=== PATIENT | female | born 2000 | race Hispanic/Latino ===

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

== ENCOUNTER 2021-01-26 14:31 | Emergency (ER) | payer OTHER ==
[2021-01-26] MEDS ORDERED: Ondansetron PF 4 MG/2 ML Vial ONE (15:23)
[2021-01-26 15:41] LABS: Bilirubin Neg (Negative); Blood, Urine Negative (Negative); Clarity Cloudy (Clear); Glucose, Urine (Dipstick) Normal (Negative); Ketone, Urine Negative (Negative); Leukocyte Negative (Negative); Nitrite Negative (Negative); Protein, Urine (Dipstick) Negative (Neg-Trace)
[2021-01-26 15:42] LABS: Pregnancy Test - Urine (BHCG) POSITIVE (Negative); Pregu Control Background? CLEAR/WHITE (CLR/WHITE); Pregu Control Bar Appear? YES (CONTROL BAR)
== END 2021-01-26 16:45 | disposition home or self-care (01) ==
LOC: CSHERS 14:31
DX: O99.891 Other specified diseases and conditions complicating pregnancy (principal); R11.2 Nausea with vomiting, unspecified
CPT/HCPCS: 81003; 81025; 84702; 96374; J2405

== ENCOUNTER 2021-05-22 10:59 | Emergency (ER) | payer OTHER ==
[2021-05-22] MEDS ORDERED: Ondansetron PF 4 MG/2 ML Vial ONE (12:01)
[2021-05-22] MEDS ORDERED: Acetaminophen 325 MG TAB ONE (12:01)
== END 2021-05-22 13:45 | disposition home or self-care (01) ==
LOC: CSHERS 10:59
DX: J10.1 Influenza due to other identified influenza virus with other respiratory manifestations (principal); E86.0 Dehydration
CPT/HCPCS: 71045; 87804; 96374; J2405

== ENCOUNTER 2021-11-04 13:18 | Emergency (ER) | payer OTHER ==
[2021-11-04] MEDS ORDERED: Ondansetron PF 4 MG/2 ML Vial ONE (14:00)
[2021-11-04 14:14] LABS: #Basophils 0.1 10x3/uL (0.0-0.2); #Eosinphils 0.1 10x3/uL (0.0-0.5); #Monocytes 0.7 10x3/uL (0.0-1.1); #Neutrophils 5.5 10x3/uL (1.5-8.4); %Basophils 0.9 % (0.0-2.0); %Eosinophils 0.8 % (0.0-6.0); %Lymphocytes 16.1 % (18.0-47.0); %Monocytes 9.2 % (0.0-10.0); %Neutrophils 72.7 % (40.0-75.0); Hemoglobin 14.6 g/dL (12.0-15.5); Mean Corpuscular Hemoglobin 32.4 pg (27.0-33.0); Mean Corpuscular Volume 92.7 fl (81.6-98.3); Mean Platelet Volume 9.3 fl (7.4-10.4); Platelet Count 277 10x3/uL (150-450); RBC Distribution Width 12.2 % (11.5-14.5); White Blood Cell (WBC) Count 7.5 10x3/uL (3.5-10.5)
[2021-11-04 14:20] LABS: BHCG - Serum Negative (NEGATIVE); Pregs Control Background? CLEAR/WHITE (CLR/WHITE); Pregs Control Bar Appear? YES (CONTROL BAR)
[2021-11-04 14:28] LABS: ALT (SGPT) 15 U/L (8-55); AST (SGOT) 16 U/L (5-34); Albumin 4.4 g/dL (3.5-5.0); Alkaline Phosphatase 47 U/L (40-100); Anion Gap 14 mmol/L (10-20); BUN (Urea Nitrogen) 12 mg/dL (7.0-18.7); Bilirubin, Total 0.9 mg/dL (0.2-1.2); Calc. Creatinine Clearance 0 mL/min (70-130); Calcium 9.2 mg/dL (7.8-10.44); Carbon Dioxide 28 mmol/L (22-29); Chloride 103 mmol/L (98-107); Estimated GFR 128; Globulin 2.4 g/dL (2.4-3.5); Glucose 83 mg/dL (70-105); Lipase 7 U/L (8-78); Potassium 3.7 mmol/L (3.5-5.1); Protein, Total 6.8 g/dL (6.0-8.3); Sodium 141 mmol/L (136-145)
[2021-11-04 15:10] LABS: Bilirubin Neg (Negative); Blood, Urine Negative (Negative); Glucose, Urine (Dipstick) Normal (Negative); Ketone, Urine 50 mg/dL (Negative); Leukocyte 25 (Negative); Nitrite Negative (Negative); Protein, Urine (Dipstick) 15 mg/dl (Neg-Trace); Specific Gravity, Urine 1.015 3 (1.005-1.030)
[2021-11-04 15:19] LABS: Bacteria/HPF Rare-Few HPF (None Seen); RBC/HPF 0-3 HPF (0-3); Squamous Epithelial 0-3 HPF (0-3)
[2021-11-04] MEDS ORDERED: Ketorolac Tromethamine 30 MG/ML VIAL ONE (15:22)
== END 2021-11-04 15:33 | disposition home or self-care (01) ==
LOC: CSHERS 13:18
DX: R10.84 Generalized abdominal pain (principal); R11.2 Nausea with vomiting, unspecified; F12.90 Cannabis use, unspecified, uncomplicated
CPT/HCPCS: 80053; 81003; 81015; 83690; 84703; 85025; 96361; 96374; 96375; J1885; J2405

== ENCOUNTER 2021-12-02 14:33 | Emergency (ER) | payer OTHER ==
[2021-12-02 14:54] LABS: Bilirubin Neg (Negative); Blood, Urine 250 (Negative); Clarity Sl. Cloudy (Clear); Glucose, Urine (Dipstick) Normal (Negative); Ketone, Urine Negative (Negative); Leukocyte 25 (Negative); Nitrite Negative (Negative); Protein, Urine (Dipstick) Negative (Neg-Trace)
[2021-12-02 14:56] LABS: Pregnancy Test - Urine (BHCG) Negative (Negative); Pregu Control Background? CLEAR/WHITE (CLR/WHITE); Pregu Control Bar Appear? YES (CONTROL BAR)
[2021-12-02 15:18] LABS: Bacteria/HPF Rare-Few HPF (None Seen)
== END 2021-12-02 17:05 | disposition home or self-care (01) ==
LOC: CSHERS 14:33
DX: N93.9 Abnormal uterine and vaginal bleeding, unspecified (principal); R51.9 Headache, unspecified
CPT/HCPCS: 81003; 81015; 81025; 99284

== ENCOUNTER 2021-12-15 04:50 | Emergency (ER) | payer OTHER ==
[2021-12-15] MEDS ORDERED: Ibuprofen 200 MG TAB ONE (06:14)
== END 2021-12-15 06:52 | disposition short-term general hospital (02) ==
LOC: CSHERS 04:50
DX: T76.21XA Adult sexual abuse, suspected, initial encounter (principal)
CPT/HCPCS: 99285

== ENCOUNTER 2022-03-31 17:23 | Emergency (ER) | payer OTHER ==
[2022-03-31] MEDS ORDERED: Ketorolac Tromethamine 30 MG/ML VIAL ONE (18:15)
[2022-03-31] MEDS ORDERED: Lidocaine 1% (PF) 30 ML VIAL ONE (18:15)
== END 2022-03-31 19:31 | disposition home or self-care (01) ==
LOC: CSHERS 17:23
DX: N75.1 Abscess of Bartholin's gland (principal)
CPT/HCPCS: 56420; 96372; J1885; J2001

== ENCOUNTER 2022-05-18 14:19 | Emergency (ER) | payer OTHER ==
[2022-05-18 15:12] LABS: Bilirubin Neg (Negative); Blood, Urine Negative (Negative); Clarity Clear (Clear); Glucose, Urine (Dipstick) Normal (Negative); Ketone, Urine Negative (Negative); Leukocyte Negative (Negative); Nitrite Negative (Negative); Pregnancy Test - Urine (BHCG) POSITIVE (Negative); Protein, Urine (Dipstick) Negative (Neg-Trace); Specific Gravity 1.015 (1.002-1.036); Specific Gravity, Urine 1.015 (1.005-1.030); Urobilinogen Normal mg/dL (Less than 2)
[2022-05-18 15:13] LABS: Pregu Control Background? CLEAR/WHITE (CLR/WHITE); Pregu Control Bar Appear? YES (CONTROL BAR)
== END 2022-05-18 15:41 | disposition home or self-care (01) ==
LOC: CSHERS 14:19
DX: O21.9 Vomiting of pregnancy, unspecified (principal); Z3A.12 12 weeks gestation of pregnancy
CPT/HCPCS: 81003; 81025; 99284

== ENCOUNTER 2022-05-26 20:36 | Emergency (ER) | payer OTHER | END 2022-05-26 21:50 | disposition home or self-care (01) | LOC: CSHERS 20:36 | DX: O99.891 Other specified diseases and conditions complicating pregnancy (principal); R10.13 Epigastric pain; Z3A.08 8 weeks gestation of pregnancy | CPT/HCPCS: 99283 ==

== ENCOUNTER 2022-06-21 22:08 | Emergency (ER) | payer OTHER ==
[2022-06-22] MEDS ORDERED: diphenhydrAMINE 25 MG CAP ONE (01:30)
[2022-06-22] MEDS ORDERED: Metoclopramide HCl 10 MG TAB ONE (01:31)
[2022-06-22 01:34] LABS: #Basophils 0.1 10x3/uL (0.0-0.2); #Eosinphils 0.1 10x3/uL (0.0-0.5); #Monocytes 0.6 10x3/uL (0.0-1.1); #Neutrophils 9.5 10x3/uL (1.5-8.4); %Basophils 0.6 % (0.0-2.0); %Eosinophils 1.1 % (0.0-6.0); %Lymphocytes 9.3 % (18.0-47.0); %Monocytes 4.9 % (0.0-10.0); %Neutrophils 83.7 % (40.0-75.0); Hemoglobin 13.2 g/dL (12.0-15.5); Mean Corpuscular HGB CONC 35.9 g/dL (32.0-36.0); Mean Corpuscular Hemoglobin 32.4 pg (27.0-33.0); Mean Corpuscular Volume 90.2 fl (81.6-98.3); Mean Platelet Volume 8.9 fl (7.4-10.4); Platelet Count 273 10x3/uL (150-450); RBC Distribution Width 11.9 % (11.5-14.5); Red Blood Cell (RBC) Count 4.08 10x6/uL (3.90-5.03); White Blood Cell (WBC) Count 11.3 10x3/uL (3.5-10.5)
[2022-06-22 01:47] LABS: ALT (SGPT) 10 U/L (8-55); AST (SGOT) 16 U/L (5-34); Albumin 4.1 g/dL (3.5-5.0); Alkaline Phosphatase 40 U/L (40-110); Anion Gap 12 mmol/L (10-20); BUN (Urea Nitrogen) 7 mg/dL (7.0-18.7); Bilirubin, Total 0.5 mg/dL (0.2-1.2); Calc. Creatinine Clearance 0 mL/min (70-130); Calcium 8.9 mg/dL (7.8-10.44); Carbon Dioxide 24 mmol/L (22-29); Chloride 103 mmol/L (98-107); Estimated GFR 135; Globulin 2.4 g/dL (2.4-3.5); Glucose 86 mg/dL (70-105); Protein, Total 6.5 g/dL (6.0-8.3); Sodium 135 mmol/L (136-145)
[2022-06-22 01:47] LABS: Bilirubin Neg (Negative); Blood, Urine 10 (Negative); Clarity Slightly Cloudy (Clear); Glucose, Urine (Dipstick) Normal (Negative); Ketone, Urine 150 mg/dL (Negative); Leukocyte 100 (Negative); Nitrite Negative (Negative); Protein, Urine (Dipstick) 15 mg/dl (Neg-Trace); Specific Gravity, Urine 1.015 (1.005-1.030); Urobilinogen Normal mg/dL (Less than 2); pH, Urine 6.5 (5.0-9.0)
[2022-06-22 01:54] LABS: Bacteria/HPF 1+ HPF (None Seen); Mucous/LPF 1+ LPF (<2+); RBC/HPF 0-3 HPF (0-3)
== END 2022-06-22 03:17 | disposition home or self-care (01) ==
LOC: CSHERS 22:08
DX: O99.611 Diseases of the digestive system complicating pregnancy, first trimester (principal); O26.91 Pregnancy related conditions, unspecified, first trimester; D72.829 Elevated white blood cell count, unspecified; Z3A.09 9 weeks gestation of pregnancy
CPT/HCPCS: 36415; 80053; 81003; 81015; 84702; 85025; 99284

== ENCOUNTER 2022-07-25 18:28 | Emergency (ER) | payer OTHER ==
[2022-07-25] MEDS ORDERED: Metoclopramide HCl 10 MG/2 ML VIAL ONE (19:30)
[2022-07-25 19:41] LABS: #Basophils 0.1 10x3/uL (0.0-0.2); #Eosinphils 0.4 10x3/uL (0.0-0.5); #Monocytes 0.7 10x3/uL (0.0-1.1); #Neutrophils 4.8 10x3/uL (1.5-8.4); %Basophils 0.7 % (0.0-2.0); %Eosinophils 5.4 % (0.0-6.0); %Lymphocytes 21.2 % (18.0-47.0); %Monocytes 8.9 % (0.0-10.0); %Neutrophils 63.4 % (40.0-75.0); Hemoglobin 12.5 g/dL (12.0-15.5); Mean Corpuscular HGB CONC 36.7 g/dL (32.0-36.0); Mean Corpuscular Hemoglobin 32.9 pg (27.0-33.0); Mean Corpuscular Volume 89.7 fl (81.6-98.3); Mean Platelet Volume 9.3 fl (7.4-10.4); Platelet Count 239 10x3/uL (150-450); RBC Distribution Width 12.1 % (11.5-14.5); White Blood Cell (WBC) Count 7.6 10x3/uL (3.5-10.5)
[2022-07-25 19:56] LABS: Anion Gap 11 mmol/L (10-20); BUN (Urea Nitrogen) 7 mg/dL (7.0-18.7); Calc. Creatinine Clearance 0 mL/min (70-130); Carbon Dioxide 23 mmol/L (22-29); Chloride 105 mmol/L (98-107); Potassium 3.7 mmol/L (3.5-5.1); Sodium 135 mmol/L (136-145)
[2022-07-25 19:57] LABS: ALT (SGPT) 12 U/L (8-55); AST (SGOT) 14 U/L (5-34); Albumin 3.4 g/dL (3.5-5.0); Alkaline Phosphatase 39 U/L (40-110); Bilirubin, Total 0.2 mg/dL (0.2-1.2); Calcium 8.6 mg/dL (7.8-10.44); Estimated GFR 131; Globulin 2.4 g/dL (2.4-3.5); Glucose 80 mg/dL (70-105); Lipase 18 U/L (8-78); Protein, Total 5.8 g/dL (6.0-8.3)
[2022-07-25 20:18] LABS: Bilirubin Neg (Negative); Blood, Urine Negative (Negative); Clarity Slightly Cloudy (Clear); Glucose, Urine (Dipstick) Normal (Negative); Ketone, Urine Negative (Negative); Leukocyte 25 (Negative); Nitrite Negative (Negative); Protein, Urine (Dipstick) Negative (Neg-Trace); Urobilinogen Normal mg/dL (Less than 2)
[2022-07-25 20:40] LABS: Bacteria/HPF 2+ HPF (None Seen); CAUTI Indications for Culture Pregnancy; Mucous/LPF 1+ LPF (<2+); RBC/HPF None Seen HPF (0-3); WBC/HPF 0-3 HPF (0-3)
[2022-07-25 20:41] LABS: Urine Culture Reflex Yes Yes
== END 2022-07-25 20:57 | disposition home or self-care (01) ==
LOC: CSHERS 18:28
DX: O99.891 Other specified diseases and conditions complicating pregnancy (principal); R51.9 Headache, unspecified; R82.71 Bacteriuria; Z3A.13 13 weeks gestation of pregnancy
CPT/HCPCS: 36415; 76815; 80053; 81001; 83690; 85025; 87086; 96374; J2765

== ENCOUNTER 2022-08-23 21:40 | Emergency (ER) | payer OTHER ==
[2022-08-23] MEDS ORDERED: Acetaminophen 500 MG TAB ONE (22:42)
[2022-08-23] MEDS ORDERED: AMOXicillin 250 MG CAP PO SCH (22:45)
[2022-08-23] MEDS ORDERED: AMOXicillin 500 MG CAP PO SCH (22:45)
== END 2022-08-23 22:55 | disposition home or self-care (01) ==
LOC: CSHERS 21:40
DX: H66.91 Otitis media, unspecified, right ear (principal); H73.91 Unspecified disorder of tympanic membrane, right ear
CPT/HCPCS: 99283

== ENCOUNTER 2022-08-30 22:20 | Emergency (ER) | payer OTHER | END 2022-08-30 22:50 | disposition home or self-care (01) | LOC: CSHERS 22:20 | DX: H60.501 Unspecified acute noninfective otitis externa, right ear (principal); H73.91 Unspecified disorder of tympanic membrane, right ear | CPT/HCPCS: 99282 ==

== ENCOUNTER 2022-09-18 12:29 | Outpatient (CLI) | payer OTHER | END 2022-09-18 12:30 | disposition home or self-care (01) | LOC: CSHULT 12:29 | PROVIDERS: ATTEND Family Medicine | DX: Z34.02 Encounter for supervision of normal first pregnancy, second trimester (principal); Z3A.24 24 weeks gestation of pregnancy | CPT/HCPCS: 76805 ==

== ENCOUNTER 2022-11-24 16:22 | Day surgery (SDC) | payer OTHER ==
[2022-11-24 16:45] VITALS: BMI 28.3
[2022-11-24] MEDS ORDERED: hydrALAZINE 20 MG/ML VIAL SLOW IVP PRN (17:11)
[2022-11-24] MEDS ORDERED: Acetaminophen 325 MG TAB PO SCH (17:15)
== END 2022-11-24 19:49 | disposition home or self-care (01) ==
LOC: CSHLD/OP 16:22
PROVIDERS: ATTEND Family Medicine
DX: O9A.213 Injury, poisoning and certain other consequences of external causes complicating pregnancy, third trimester (principal); R10.31 Right lower quadrant pain; R10.32 Left lower quadrant pain; Z3A.34 34 weeks gestation of pregnancy; Y04.8XXA Assault by other bodily force, initial encounter
CPT/HCPCS: 76819

== ENCOUNTER 2022-12-17 08:50 | Day surgery (SDC) | payer OTHER ==
[2022-12-17 10:09] LABS: Fetal Membranes Rupture No Membranes Rupture (No Rupture)
[2022-12-17] MEDS ORDERED: hydrALAZINE 20 MG/ML VIAL SLOW IVP PRN (10:37)
== END 2022-12-17 10:48 | disposition home or self-care (01) ==
LOC: CSHLD/OP 08:50
PROVIDERS: ATTEND Family Medicine
DX: O41.8X30 Other specified disorders of amniotic fluid and membranes, third trimester, not applicable or unspecified (principal); Z3A.37 37 weeks gestation of pregnancy
CPT/HCPCS: 84112

== ENCOUNTER 2023-01-02 12:00 | Inpatient (IN) | payer OTHER ==
[2023-01-02 12:29] VITALS: BMI 28.6
[2023-01-02 12:50] LABS: Fetal Membranes Rupture RUPTURE DETECTED (No Rupture)
[2023-01-02] MEDS ORDERED: Docusate 100 MG CAP PO PRN (13:37)
[2023-01-02] MEDS ORDERED: hydrALAZINE 20 MG/ML VIAL SLOW IVP PRN (13:37)
[2023-01-02] MEDS ORDERED: Acetaminophen 500 MG TAB PO PRN (13:37)
[2023-01-02] MEDS ORDERED: HYDROcodone/Acetaminophen 5/325 mg Tablet PO PRN (13:37)
[2023-01-02] MEDS ORDERED: Methylergonovine 0.2 MG/ML VIAL IM PRN (13:37)
[2023-01-02] MEDS ORDERED: fentaNYL 50 mcg/mL 1 mL Vial SLOW IVP PRN (13:37)
[2023-01-02] MEDS ORDERED: Tranexamic Acid 1,000 MG/10 ML VIAL IVP PRN (13:37)
[2023-01-02] MEDS ORDERED: Ibuprofen 800 MG TAB PO PRN (13:37)
[2023-01-02] MEDS ORDERED: Diphenoxylate HCl/Atropine Tablet PO PRN (13:37)
[2023-01-02] MEDS ORDERED: Promethazine HCl 25 MG/ML VIAL IM PRN ×2 (13:37→19:02)
[2023-01-02] MEDS ORDERED: Ondansetron PF 4 MG/2 ML Vial IVP PRN ×2 (13:37→19:02)
[2023-01-02] MEDS ORDERED: Carboprost 250 MCG/ML AMP IM PRN (13:37)
[2023-01-02] MEDS ORDERED: Misoprostol 200 MCG TAB PR PRN (13:37)
[2023-01-02] MEDS ORDERED: Lidocaine 1% (PF) 30 ML VIAL SC PRN (13:37)
[2023-01-02] MEDS ORDERED: Oxytocin 30 units/NS 500 ML 500 ML IV SCH ×3 (13:45)
[2023-01-02] MEDS: Misoprostol 100 MCG TAB PO SCH (14:25)
[2023-01-02 14:26] LABS: Hematocrit 38.8 % (34.9-44.5); Hemoglobin 13.5 g/dL (12.0-15.5); Mean Corpuscular HGB CONC 34.8 g/dL (32.0-36.0); Mean Corpuscular Hemoglobin 30.8 pg (27.0-33.0); Mean Corpuscular Volume 88.4 fl (81.6-98.3); Mean Platelet Volume 10.2 fl (7.4-10.4); Platelet Count 259 10x3/uL (150-450); Red Blood Cell (RBC) Count 4.39 10x6/uL (3.90-5.03); White Blood Cell (WBC) Count 7.7 10x3/uL (3.5-10.5)
[2023-01-02] MEDS ORDERED: Penicillin G Potassium 5 MILL.UNITS in Sodium Chloride 0.9% 100 ML IVPB SCH (14:30)
[2023-01-02 14:51] LABS: HBSAg Index 0.18 S/CO (0-0.99); Hep B Surf Ag - L&D Non-Reactive S/CO (NonReactive)
[2023-01-02 14:54] LABS: Syphilis Antibody Nonreactive (Nonreactive); Syphilis Antibody Index 0.04 S/CO (<1.00 Non-Reactive)
[2023-01-02] MEDS ORDERED: fentaNYL/Ropivacaine Epidural 100 ML ONE (18:20)
[2023-01-02] MEDS: Penicillin G 2.5 MILL.units 2.5 MILL.UNITS in Premix 1 BAG IVPB SCH ×2 (18:50→22:55)
[2023-01-02] MEDS ORDERED: Lactated Ringer's 500 ML IV PRN (19:02)
[2023-01-02] MEDS ORDERED: ePHEDrine Sulfate 50 MG/10 ML VIAL SLOW IVP PRN (19:02)
[2023-01-02] MEDS ORDERED: Moisturizing Cream (Eucerin) 113 GM JAR TOP PRN (19:02)
[2023-01-02] MEDS ORDERED: Naloxone HCl 0.4 mg/ml Vial IVP PRN ×2 (19:02)
[2023-01-02] MEDS ORDERED: diphenhydrAMINE 50 MG/ML VIAL IVP PRN (19:02)
[2023-01-02] MEDS ORDERED: Acetaminophen 325 MG TAB PO PRN (19:02)
[2023-01-02] MEDS ORDERED: Communication Order-Pharmacy FS SCH (19:15)
[2023-01-02] MEDS ORDERED: fentaNYL 2 mcg/Ropivacaine 0.2% Epidural 100 ML CADD EPIDURAL SCH (19:15)
[2023-01-03] MEDS: Misoprostol 100 MCG TAB PO SCH ×2 (01:05→20:32)
[2023-01-03] MEDS: Penicillin G 2.5 MILL.units 2.5 MILL.UNITS in Premix 1 BAG IVPB SCH ×2 (03:00→06:53)
[2023-01-03] MEDS: Ampicillin 2 GM in Sodium Chloride 0.9% 100 ML IVPB SCH ×3 (08:54→21:23)
[2023-01-03] MEDS: Lactated Ringer's 1,000 ML IV SCH ×2 (08:54→20:36)
[2023-01-03] MEDS ORDERED: CEFAZOLIN 2 GM VIAL ONE (16:10)
[2023-01-03] MEDS ORDERED: Azithromycin 500 MG VIAL ONE (16:10)
[2023-01-03] MEDS ORDERED: Morphine PF 10 MG/10 ML VIAL ONE (16:18)
[2023-01-03] MEDS ORDERED: Ondansetron PF 4 MG/2 ML Vial ONE (16:18)
[2023-01-03] MEDS ORDERED: Oxytocin 10 UNITS/ML VIAL ONE (16:18)
[2023-01-03] MEDS ORDERED: Midazolam HCl 2 mg/2 ml Vial ONE (16:45)
[2023-01-03] MEDS ORDERED: fentaNYL 50 mcg/mL 1 mL Vial ONE (16:45)
[2023-01-03] MEDS ORDERED: PROPOFOL 20 ML ONE (16:47)
[2023-01-03] MEDS ORDERED: Promethazine HCl 25 MG SUPP PR PRN (17:22)
[2023-01-03] MEDS ORDERED: diphenhydrAMINE 50 MG/ML VIAL IVP PRN (17:22)
[2023-01-03] MEDS ORDERED: Moisturizing Cream (Eucerin) 113 GM JAR TOP PRN (17:22)
[2023-01-03] MEDS ORDERED: fentaNYL 50 mcg/mL 1 mL Vial SLOW IVP PRN (17:22)
[2023-01-03] MEDS ORDERED: Naloxone HCl 0.4 mg/ml Vial IVP PRN ×2 (17:22)
[2023-01-03] MEDS ORDERED: Meperidine HCl/PF 25 MG/ML VIAL SLOW IVP PRN (17:22)
[2023-01-03] MEDS ORDERED: Naloxone HCl 0.4 mg/ml Vial IV PRN (17:22)
[2023-01-03] MEDS ORDERED: Ondansetron PF 4 MG/2 ML Vial IVP PRN ×3 (17:22→19:49)
[2023-01-03] MEDS ORDERED: Promethazine HCl 25 MG/ML VIAL IM PRN ×2 (17:22→19:49)
[2023-01-03] MEDS ORDERED: Ketorolac Tromethamine 30 MG/ML VIAL IVP PRN (17:22)
[2023-01-03] MEDS ORDERED: Ketorolac Tromethamine 30 MG/ML VIAL IVP SCH (17:30)
[2023-01-03] MEDS ORDERED: Communication Order-Pharmacy FS SCH (17:30)
[2023-01-03] MEDS ORDERED: hydrALAZINE 20 MG/ML VIAL SLOW IVP PRN (19:49)
[2023-01-03] MEDS ORDERED: Boostrix 0.5 ML (Tdap) VIAL (>/=7 yrs of age) IM ONE (19:49)
[2023-01-03] MEDS ORDERED: Simethicone Chewable 80 MG TAB PO PRN (19:49)
[2023-01-03] MEDS ORDERED: Lanolin Ointment 7 GM TUBE TOP PRN (19:49)
[2023-01-03] MEDS ORDERED: Diphenoxylate HCl/Atropine Tablet PO PRN (19:49)
[2023-01-03] MEDS ORDERED: diphenhydrAMINE 25 MG CAP PO PRN (19:49)
[2023-01-03] MEDS ORDERED: Bisacodyl 10 MG SUPP PR PRN (19:49)
[2023-01-03] MEDS ORDERED: Oxytocin 30 units/NS 500 ML 500 ML IV SCH (20:15)
[2023-01-03] MEDS: Docusate 100 MG CAP PO SCH (20:34)
[2023-01-03] MEDS: Ferrous Sulfate 325 MG TAB PO SCH (20:34)
[2023-01-04] MEDS: Ketorolac Tromethamine 30 MG/ML VIAL IVP SCH ×3 (01:10→16:31)
[2023-01-04] MEDS: Ampicillin 2 GM in Sodium Chloride 0.9% 100 ML IVPB SCH ×4 (03:40→21:13)
[2023-01-04] MEDS ORDERED: Meperidine HCl/PF 25 MG/ML VIAL IM PRN (05:30)
[2023-01-04 05:33] LABS: Hematocrit 28.9 % (34.9-44.5); Hemoglobin 10.1 g/dL (12.0-15.5); Mean Corpuscular HGB CONC 34.9 g/dL (32.0-36.0); Mean Corpuscular Hemoglobin 31.3 pg (27.0-33.0); Mean Corpuscular Volume 89.5 fl (81.6-98.3); Mean Platelet Volume 10.4 fl (7.4-10.4); Platelet Count 203 10x3/uL (150-450); RBC Distribution Width 12.2 % (11.5-14.5); Red Blood Cell (RBC) Count 3.23 10x6/uL (3.90-5.03); White Blood Cell (WBC) Count 13.3 10x3/uL (3.5-10.5)
[2023-01-04] MEDS: Ferrous Sulfate 325 MG TAB PO SCH ×2 (10:29→21:13)
[2023-01-04] MEDS: Prenatal Vitamin 1 TAB PO SCH (10:29)
[2023-01-04] MEDS: Docusate 100 MG CAP PO SCH ×2 (10:30→21:13)
[2023-01-04] MEDS: HYDROcodone/Acetaminophen 5/325 mg Tablet PO PRN (16:30)
[2023-01-04] MEDS: Ibuprofen 800 MG TAB PO SCH (21:13)
[2023-01-05] MEDS: HYDROcodone/Acetaminophen 5/325 mg Tablet PO PRN ×2 (02:38→13:39)
[2023-01-05] MEDS: Ampicillin 2 GM in Sodium Chloride 0.9% 100 ML IVPB SCH ×4 (02:38→21:33)
[2023-01-05] MEDS: Ibuprofen 800 MG TAB PO SCH ×3 (05:16→21:32)
[2023-01-05] MEDS: Docusate 100 MG CAP PO SCH ×2 (09:40→21:33)
[2023-01-05] MEDS: Prenatal Vitamin 1 TAB PO SCH (09:40)
[2023-01-05] MEDS: Ferrous Sulfate 325 MG TAB PO SCH (09:40)
[2023-01-06] MEDS: HYDROcodone/Acetaminophen 5/325 mg Tablet PO PRN ×2 (00:59→12:39)
[2023-01-06] MEDS: Ampicillin 2 GM in Sodium Chloride 0.9% 100 ML IVPB SCH ×3 (03:33→16:23)
[2023-01-06] MEDS: Ibuprofen 800 MG TAB PO SCH ×3 (05:31→20:53)
[2023-01-06] MEDS: Ferrous Sulfate 325 MG TAB PO SCH (08:54)
[2023-01-06] MEDS: Prenatal Vitamin 1 TAB PO SCH (09:11)
[2023-01-06] MEDS: Docusate 100 MG CAP PO SCH ×2 (09:11→20:53)
[2023-01-06 21:23] VITALS: TEMP 99
[2023-01-06 21:24] VITALS: BP 116/80
== END 2023-01-06 21:57 | disposition home or self-care (01) | DRG 788 ==
LOC: CSHLD/OP 12:00 → CSHLD 16:00 → CSHPP 01-03 20:00
PROVIDERS: ADMIT Family Medicine; ATTEND Family Medicine
PROC: 10D00Z1 Extraction of Products of Conception, Low, Open Approach (ICD-10-PCS; principal; 2023-01-03)
PROC: 10907ZC Drainage of Amniotic Fluid, Therapeutic from Products of Conception, Via Natural or Artificial Opening (ICD-10-PCS; 2023-01-03)
PROC: 10H07YZ Insertion of Other Device into Products of Conception, Via Natural or Artificial Opening (ICD-10-PCS; 2023-01-03)
DX: O42.02 Full-term premature rupture of membranes, onset of labor within 24 hours of rupture (principal); Z3A.39 39 weeks gestation of pregnancy; O62.1 Secondary uterine inertia; Z37.0 Single live birth; O99.824 Streptococcus B carrier state complicating childbirth; O77.0 Labor and delivery complicated by meconium in amniotic fluid
CPT/HCPCS: 36415; 51702; 84112; 85027; 86780; 86850; 86900; 86901; 87340; 88307; 99285; J0290; J1200; J1580; J1885; J2175; J2210; J2250; J2274; J2405; J2540; J2550; J2590; J2704; J3010; J3490; J7120